=== PATIENT | male | born 1975 | race Caucasian/White ===

== ENCOUNTER 2023-09-23 14:40 | Inpatient (IN) | payer OTHER, SELFPAY ==
[2023-09-23 15:11] VITALS: BP 172/103; PULSE 79; RESP 16; TEMP 36.4; O2SAT 97
[2023-09-23 15:12] VITALS: BMI 24.3
[2023-09-23] MEDS: nicotine 2 mg Gum BUCCAL (16:03)
--- NOTE | 2023-09-23 16:22 | PC.NURSE ---
Patient is a direct admit from [facility]. Patient is on a 96-hour hold for statements he made while intoxicated. Patient stated to a neighbor that he either wanted to shoot himself or jump in the river. Patient's ETOH was 323 when he was admitted to [facility]. On 09/21 at 0100, patient's ETOH was 93. Patient recently found out that his of 27 years cheated on him. Patient currently denies SI, HI. Patient states that when he drinks, he gets suicidal and homicidal. Patient denies AVH. Patient is an alcoholic. Patient completed a 30-day program at [facility] over one year ago. Patient denies drinking daily, but in the past he was an everyday drinker. Patient's BP elevated upon arrival. Patient states that he always has high blood pressure. Patient doesn't appear to be in any distress
[2023-09-23] MEDS: LORazepam 2 mg Tablet PO (17:07)
--- NOTE | 2023-09-23 17:09 | PC.NURSE ---
Administered Ativan 2mg PO to patient per Dr. Foley despite scoring a 4 on CIWA. Patient states that he doesn't display common side effects of detoxing from alcohol. Patient's blood pressure has been elevated, and the [facility] was not able to determine if patient is on Losartan because it shows it has been cancelled. Called his PCP, Estella Gallegos at [phone], but office had closed for the day. Patient was given metoprolol and losartan at [facility] prior to being shipped to [facility].
--- NOTE | 2023-09-23 18:09 | PC.NURSE ---
Patient's BP 145/90 after having the ativan 2mg. Dr. Foley notified.
[2023-09-23 20:02] VITALS: BP 109/68; PULSE 87; RESP 16; TEMP 36.6; O2SAT 97
[2023-09-24] VITALS (7 sets, daily range): BP systolic 142–156; BP diastolic 97–114; PULSE 92–133; RESP 16–20; TEMP 36.6; O2SAT 96–99
[2023-09-24] MEDS: nicotine 21 mg Patch 1 PATCH TRANSDERMA (07:21)
--- NOTE | 2023-09-24 07:37 | P.NPUHP_ITS ---
Providers/Chief Complaint Admitting Physician: Cory Foley MD Chief Complaint: SI HPI NPU History of Present Illness Thiago Lauren is a 48 year old male presented to the outside hospital emergency department reporting that his landlord brought him because he told him he was going to shoot himself with multiple guns in the house. He reportedly texted his who he reported had been cheating on him and that he had relapsed and had suicidal ideation. He reported to them that he just wanted to end. He was placed on a 96-hour hold and transferred to [facility] for definitive treatment of those issues. He presents today reporting: CHIEF COMPLAINT Suicidal thoughts, depression and anxiety due to marital issues. HISTORY OF THE PRESENT COMPLAINT The patient is currently under a 96-hour hold due to suicidal thoughts. He has been experiencing these thoughts recently, with a notable incident occurring on the previous Saturday. He has not acted on these thoughts but has access to firearms at home. He denies any history of self-injurious behavior such as cutting, burning, or head-banging. The patient's mood is currently low, and he describes himself as feeling sad. He has been experiencing feelings of depression, hopelessness, and worthlessness, along with sleep difficulties and a decrease in energy. He has also reported a loss of enjoyment in activities he previously enjoyed. He has noticed changes in his appetite and has expressed a lack of concern about waking up the next day. The patient's current emotional state appears to be linked to recent events in his personal life. He discovered a couple of weeks ago that his had been unfaithful and has been struggling with his emotions since then. Despite the infidelity, they are still and are trying to work on their relationship. The patient has a history of alcohol use and has been to rehab twice. He had been sober for five to six months following his most recent stint in rehab but relapsed approximately one to two weeks ago. He also uses tobacco and cannabis but denies the use of other substances such as cocaine, methamphetamine, opiates, pain pills, ecstasy, and mushrooms. In terms of medication, the patient is currently taking a pill for his mood, which he refers to as a happy pill. He is unsure of the name of this medication. He has previously been on medication for depression or anxiety but does not recall the names of these medications. He has agreed to try Prozac 20 mg to help with his mood. The patient has a history of being held in a psychiatric hospital and has undergone outpatient treatment where he discussed his issues. He has also been through detox and rehab. He has a DUI charge from three years ago and has been to rehab twice. He has not had any other charges such as paraphernalia, underage drinking, or possession. 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 He has been in a relationship with his for 30 years, and they have two daughters aged 21 and 26. He does not have a strong mormon belief system and has been living in a house with his and 21-year-old daughter. He has a history of high blood pressure and had a broken wrist when he was [age] years old. We discussed the risks, benefits and alternatives to a trial of Prozac 20 mg p.o. daily and he understood and agreed to proceed as is documented in this note. MENTAL HEALTH HISTORY Previous psychiatric hospitalization, outpatient treatment, detox and rehab. History of medication for depression and anxiety. No history of self-injurious behavior, hearing voices, obsessive thoughts, or mental health issues in family. No history of suicide attempts or compaction. No history of special education needs or child protective services involvement. No history of traumatic events. SOCIAL HISTORY Tobacco use (chewing), alcohol use with periods of sobriety and recent relapse, cannabis use. No use of cocaine, methamphetamine, opiates, pain pills, ecstasy, or mushrooms. DUI charge three years ago, no other charges. with two daughters, currently trying to work on relationship after 's affair. 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 No mormon belief system. 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 No service. No history of retirement time. Meds NPU Home Medications Medication Instructions Recorded Confirmed Last Taken Type meloxicam 15 mg tablet 15 mg PO DAILY 09/24/23 09/24/23 Unknown History naltrexone 50 mg tablet 50 mg PO DAILY 09/24/23 09/24/23 Unknown History Allergies Allergy/AdvReac Type Severity Reaction Status Date / Time No Known Allergies Allergy Verified 09/23/23 15:14 Mental Status Exam MSE Comments: This is a well-nourished well-developed white male, in hospital scrubs with limited grooming but adequate eye contact. No abnormal movements except for mild psychomotor retardation. Cooperative with exam in mild distress. Speech was decreased rate and volume. Mood described as sad; affect congruent and somewhat emotional. Thought process, organized. Thought content: patient denied any suicidal or homicidal ideation, there were no delusions reported or noted, he denied any auditory or visual hallucinations. Suicidal thoughts, depression, anxiety, low mood, feeling helpless, hopeless, worthless, sleep difficulties, low energy, loss of enjoyment, change in appetite. No thoughts of violence or aggression against others, no visual hallucinations, no paranoia, no hallucinations. Attention and concentration appear intact, and memory appears reliable but were not formally tested. He is alert and oriented times three. Insight and judgment are fair. Impulse control impaired. Vitals/I&O/Wt Last Vital Signs Temp 98 F 09/24/23 06:00 Pulse 92 09/24/23 06:00 Resp 16 09/24/23 06:00 BP 142/104 09/24/23 06:00 Pulse Ox 99 09/24/23 06:00 O2 Del Method Room Air 09/23/23 15:12 Weight last 48 hrs Weight 64.41 kg A&P Assessment and plan (1) Marital/partner relational problem: (2) Alcohol use disorder, severe, dependence: (3) Depression: (4) Adjustment disorder with mixed disturbance of emotions and conduct: (5) Suicidal ideation: Plan This is a 48-year-old white male with a long history of alcohol addiction with a recent period of sobriety after rehab who presents endorsing depression and an openness to trial of medication. Patient is struggling with depression and suicidal thoughts following discovery of 's affair. He has a history of alcohol and cannabis use, and is currently on a 96-hour hold due to his mental state. He has not previously been hospitalized or undergone outpatient treatment except for detox, and rehab. He is not typically an anxious person, but is currently experiencing anxiety due to his situation. 1.? ?Encourage individual ,milieu, and group therapy 2. ? We will attempt to gather collateral information. 3. ? TO-15 minute checks on the unit. 4.? Recommend sober living treatment at the highest level of care to which the patient is willing to commit. 5. Continue CIWA protocol. 6. Start Prozac 20 mg p.o. daily Involuntary Hold Information 96 Hour Hold: 96 Hour Involuntary Admission: Yes Attestations NPU Medical Necessity Statement*: Inpatient hospitalization is medically necessary and the clinically appropriate intervention at this time. We will monitor/initiate medications and make changes as indicated he will be in the hospital for over 2 midnights. Likely length of stay is 3 to 5 days. Coding Level of Care Code Acute Code for Chg Fwd Diagnoses Marital/partner relational problem Z63.0 Alcohol use disorder, severe, dependence F10.20 Depression F32.A Adjustment disorder with mixed disturbance of emotions and conduct F43.25 Suicidal ideation R45.851
[2023-09-24] MEDS: meloxicam 7.5 mg tablet 15 MG PO (08:12)
[2023-09-24] MEDS: multivitamin therapeutic Tablet 1 TAB PO (08:13)
[2023-09-24] MEDS: naltrexone hcl 50 mg Tablet PO (08:13)
[2023-09-24] MEDS: folic acid 1 mg Tablet PO (08:13)
[2023-09-24] MEDS: thiamine 100 mg Tablet PO (08:13)
--- NOTE | 2023-09-24 09:49 | PC.NURSE ---
AT AROUND 0900 STAFF PERFORMED RANDOM ROOM CHECKS FOR CONTRABAND. DURING THIS RANDOM CHECK NO CONTRABAND WAS FOUND IN PT ROOM. PT WAS COOPERATIVE WITH CHECK.
[2023-09-24] MEDS: LORazepam 2 mg Tablet PO (10:52)
[2023-09-24] MEDS: losartan 50 mg Tablet PO (14:39)
[2023-09-24] MEDS: hyDROXYzine 25 mg Capsule 50 MG PO (22:50)
[2023-09-25] MEDS: LORazepam 2 mg Tablet PO (02:10)
[2023-09-25 03:48] VITALS: BP 144/85; PULSE 87
[2023-09-25 07:52] VITALS: BP 159/103; PULSE 86; RESP 17; O2SAT 98
[2023-09-25 08:50] VITALS: BP 159/103
[2023-09-25] MEDS: folic acid 1 mg Tablet PO (08:50)
[2023-09-25] MEDS: thiamine 100 mg Tablet PO (08:50)
[2023-09-25] MEDS: naltrexone hcl 50 mg Tablet PO (08:50)
[2023-09-25] MEDS: meloxicam 7.5 mg tablet 15 MG PO (08:50)
[2023-09-25] MEDS: multivitamin therapeutic Tablet 1 TAB PO (08:50)
[2023-09-25] MEDS: OLANZapine 5 mg ODT PO (08:50)
[2023-09-25] MEDS: losartan 50 mg Tablet PO (08:50)
[2023-09-25 12:00] VITALS: BP 136/87; PULSE 112; RESP 17; O2SAT 97
--- NOTE | 2023-09-25 15:57 | P.NPUPN_ITS ---
Subjective NPU Subjective: Patient presented today reporting that he is feeling a little better. He reports that he is having some improvement from the standpoint of his withdrawal symptoms and is still dealing with the situation at home with his . He did receive the Prozac and denied any side effects from the medication. We discussed some work with the social work team for appropriate follow-up. Mental Status Exam MSE Comments: This is a well-nourished well-developed white male, in hospital scrubs with limited grooming but adequate eye contact. No abnormal movements except for mild psychomotor retardation. Cooperative with exam in mild distress. Speech was decreased rate and volume. Mood described as a little better; affect congruent and less emotional. Thought process, organized. Thought content: patient denied any suicidal or homicidal ideation, there were no delusions reported or noted, he denied any auditory or visual hallucinations. Suicidal thoughts, depression, anxiety, low mood, feeling helpless, hopeless, worthless, sleep difficulties, low energy, loss of enjoyment, change in appetite. No thoughts of violence or aggression against others, no visual hallucinations, no paranoia, no gasca ucinations. Attention and concentration appear intact, and memory appears reliable but were not formally tested. He is alert and oriented times three. Insight and judgment are fair. Impulse control impaired. Vitals/I&O/Wt Last Vital Signs Temp 97.9 F 09/24/23 20:00 Pulse 112 H 09/25/23 12:00 Resp 17 09/25/23 12:00 BP 136/87 09/25/23 12:00 Pulse Ox 97 09/25/23 12:00 O2 Del Method Room Air 09/24/23 15:44 A&P Assessment and plan (1) Marital/partner relational problem: (2) Alcohol use disorder, severe, dependence: (3) Depression: (4) Adjustment disorder with mixed disturbance of emotions and conduct: (5) Suicidal ideation: Plan This is a 48-year-old white male with a long history of alcohol addiction with a recent period of sobriety after rehab who presents endorsing depression and an openness to trial of medication. Patient is struggling with depression and suicidal thoughts following discovery of 's affair. He has a history of alcohol and cannabis use, and is currently on a 96-hour hold due to his mental state. He has not previously been hospitalized or undergone outpatient treatment except for detox, and rehab. He is not typically an anxious person, but is currently experiencing anxiety due to his situation. 1.? ?Encourage individual ,milieu, and group therapy 2. ? We will attempt to gather collateral information. 3. ? TO-15 minute checks on the unit. 4.? Recommend sober living treatment at the highest level of care to which the patient is willing to commit. 5. Continue CIWA protocol. 6. Started Prozac 20 mg p.o. daily Involuntary Hold Information 96 Hour Hold: 96 Hour Involuntary Admission: Yes Attestations NPU Medical Necessity Statement*: Inpatient hospitalization is medically necessary and the clinically appropriate intervention at this time. We will monitor/initiate medications and make changes as indicated. Likely length of stay is 1-4 days. Coding Level of Care Code Acute Code for Chg Fwd Diagnoses Marital/partner relational problem Z63.0 Alcohol use disorder, severe, dependence F10.20 Depression F32.A Adjustment disorder with mixed disturbance of emotions and conduct F43.25 Suicidal ideation R45.851
[2023-09-25 16:00] VITALS: BP 134/93; PULSE 91; RESP 16; O2SAT 96
--- NOTE | 2023-09-25 18:50 | PC.NURSE ---
PT RECEIVED PRN MEDICATIONS FOR REPORTS OF INCREASED ANXIETY. PT WAS GIVEN ZYDIS 5 MG ORDERED. MEDICATION DEEMED EFFECTIVE AT THIS TIME. PT HAD NO OTHER COMPLAINTS OF ANXIETY SUPPORT VOICED.
[2023-09-25 20:00] VITALS: BP 117/78; PULSE 102; RESP 17; TEMP 36.4; O2SAT 96
[2023-09-26] VITALS (7 sets, daily range): BP systolic 144–169; BP diastolic 92–102; PULSE 74–103; RESP 16–20; TEMP 36.6–36.7; O2SAT 96–100
[2023-09-26] MEDS: naltrexone hcl 50 mg Tablet PO (08:24)
[2023-09-26] MEDS: losartan 50 mg Tablet PO (08:24)
[2023-09-26] MEDS: thiamine 100 mg Tablet PO (08:24)
[2023-09-26] MEDS: OLANZapine 5 mg ODT PO (08:24)
[2023-09-26] MEDS: folic acid 1 mg Tablet PO (08:24)
[2023-09-26] MEDS: multivitamin therapeutic Tablet 1 TAB PO (08:24)
[2023-09-26] MEDS: meloxicam 7.5 mg tablet 15 MG PO (08:24)
--- NOTE | 2023-09-26 08:59 | PC.NURSE ---
PT IN DAY ROOM EATING. BP AT 800 WAS 169/102 WITH HR 74. DENIES PAIN. DENIES SI/HI AND AVH AT THIS TIME. RATES ANXIETY 07/03 AND DEPRESSION /. ZYDIS 5 MG WAS GIVEN TO REDUCE ANXIETY AND ASSIST WITH ALCOHOL WITHDRAWAL. PT IS OBSERVED SITTING IN DAY ROOM CONVERSING WITH PEERS AND STAFF. PT REPORTS HE SLEPT WELL LAST NIGHT. DENIES PAIN. ALL QUESTIONS WERE ANSWERED AND SUPPORT WAS VOICED.
[2023-09-26] MEDS: nicotine 21 mg Patch 1 PATCH TRANSDERMA (09:49)
--- NOTE | 2023-09-26 13:30 | W.PM.NPUPNS ---
Subjective NPU Subjective: Patient presented today reporting that he is feeling a little better each day. We eventually were able to get a hold of his and she agreed to figure out a place for the guns to be removed to and put in a safe with someone and her inner [place] for the time being. She reports that she is open to him returning home and that she would come to pick him up tomorrow. He reports his withdrawal appears to be resolving and that he denied any side effects to the medication. Mental Status Exam MSE Comments: This is a well-nourished well-developed white male, in hospital scrubs with limited grooming but adequate eye contact. No abnormal movements except for mild psychomotor retardation. Cooperative with exam in mild distress. Speech was decreased rate and volume. Mood described as a little better; affect congruent and less emotional. Thought process, organized. Thought content: patient denied any suicidal or homicidal ideation, there were no delusions reported or noted, he denied any auditory or visual hallucinations. Suicidal thoughts, depression, anxiety, low mood, feeling helpless, hopeless, worthless, sleep difficulties, low energy, loss of enjoyment, change in appetite. No thoughts of violence or aggression against others, no visual hallucinations, no paranoia, no hallucinations. Attention and concentration appear intact, and memory appears reliable but were not formally tested. He is alert and oriented times three. Insight and judgment are fair. Impulse control impaired. Vitals/I&O/Wt Last Vital Signs Temp 98 F 09/26/23 12:00 Pulse 103 H 09/26/23 12:00 Resp 20 H 09/26/23 12:00 BP 156/100 09/26/23 12:00 Pulse Ox 98 09/26/23 12:00 O2 Del Method Room Air 09/24/23 15:44 A&P Assessment and plan (1) Marital/partner relational problem: (2) Alcohol use disorder, severe, dependence: (3) Depression: (4) Adjustment disorder with mixed disturbance of emotions and conduct: (5) Suicidal ideation: Plan This is a 48-year-old white male with a long history of alcohol addiction with a recent period of sobriety after rehab who presents endorsing depression and an openness to trial of medication. Patient is struggling with depression and suicidal thoughts following discovery of 's affair. He has a history of alcohol and cannabis use, and is currently on a 96-hour hold due to his mental state. He has not previously been hospitalized or undergone outpatient treatment except for detox, and rehab. He is not typically an anxious person, but is currently experiencing anxiety due to his situation. 1.? ?Encourage individual ,milieu, and group therapy 2. ? We will attempt to gather collateral information. 3. ? TO-15 minute checks on the unit. 4.? Recommend sober living treatment at the highest level of care to which the patient is willing to commit. 5. Continue CIWA protocol. 6. Started Prozac 20 mg p.o. daily 7. Plan for discharge tomorrow Involuntary Hold Information 96 Hour Hold: 96 Hour Involuntary Admission: Yes Attestations NPU Medical Necessity Statement*: Inpatient hospitalization is medically necessary and the clinically appropriate intervention at this time. We will monitor/initiate medications and make changes as indicated. Likely length of stay is 1 day. Coding Level of Care Code Acute Code for g Fwd Diagnoses Marital/partner relational problem Z63.0 Alcohol use disorder, severe, dependence F10.20 Depression F32.A Adjustment disorder with mixed disturbance of emotions and conduct F43.25 Suicidal ideation R45.851
[2023-09-26] MEDS: haloperidol 5 mg Tablet PO (15:11)
[2023-09-26] MEDS: hyDROXYzine 25 mg Capsule 50 MG PO (18:37)
[2023-09-27 06:00] VITALS: BP 134/91; PULSE 98; RESP 16; TEMP 36.6; O2SAT 98
[2023-09-27 08:06] VITALS: BP 134/91
[2023-09-27] MEDS: multivitamin therapeutic Tablet 1 TAB PO (08:06)
[2023-09-27] MEDS: naltrexone hcl 50 mg Tablet PO (08:06)
[2023-09-27] MEDS: meloxicam 7.5 mg tablet 15 MG PO (08:06)
[2023-09-27] MEDS: thiamine 100 mg Tablet PO (08:06)
[2023-09-27] MEDS: folic acid 1 mg Tablet PO (08:06)
[2023-09-27] MEDS: losartan 50 mg Tablet PO (08:06)
[2023-09-27] MEDS: nicotine 4 mg lozenge MUCOUS MEM ×2 (08:15→11:01)
--- NOTE | 2023-09-27 12:17 | P.NPUDS_ITS ---
Diagnoses at Discharge Discharge Diagnosis (1) Marital/partner relational problem: Status: Acute (2) Alcohol use disorder, severe, dependence: Status: Acute (3) Depression: Status: Acute (4) Adjustment disorder with mixed disturbance of emotions and conduct: Status: Acute (5) Suicidal ideation: Status: Acute Reason for Visit Reason for Visit: SI Brief History: History of Present Illness Thiago Lauren is a 48 year old male presented to the [facility] emergency department reporting that his landlord brought him because he told him he was going to shoot himself with multiple guns in the house. He reportedly texted his who he reported had been cheating on him and that he had relapsed and had suicidal ideation. He reported to them that he just wanted to end. He was placed on a 96-hour hold and transferred to [facility] for definitive treatment of those issues. He presents today reporting: CHIEF COMPLAINT Suicidal thoughts, depression and anxiety due to marital issues. HISTORY OF THE PRESENT COMPLAINT The patient is currently under a 96-hour hold due to suicidal thoughts. He has been experiencing these thoughts recently, with a notable incident occurring on the previous Saturday. He has not acted on these thoughts but has access to firearms at home. He denies any history of self-injurious behavior such as cutting, burning, or head-banging. The patient's mood is currently low, and he describes himself as feeling sad. He has been experiencing feelings of depression, hopelessness, and worthlessness, along with sleep difficulties and a decrease in energy. He has also reported a loss of enjoyment in activities he previously enjoyed. He has noticed changes in his appetite and has expressed a lack of concern about waking up the next day. The patient's current emotional state appears to be linked to recent events in his personal life. He discovered a couple of weeks ago that his had been unfaithful and has been struggling with his emotions since then. Despite the infidelity, they are still and are trying to work on their relationship. The patient has a history of alcohol use and has been to rehab twice. He had been sober for five to six months following his most recent stint in rehab but relapsed approximately one to two weeks ago. He also uses tobacco and cannabis but denies the use of other substances such as cocaine, methamphetamine, opiates, pain pills, ecstasy, and mushrooms. In terms of medication, the patient is currently taking a pill for his mood, which he refers to as a happy pill. He is unsure of the name of this medication. He has previously been on medication for depression or anxiety but does not recall the names of these medications. He has agreed to try Prozac 20 mg to help with his mood. The patient has a history of being held in a psychiatric hospital and has undergone outpatient treatment where he discussed his issues. He has also been through detox and rehab. He has a DUI charge from three years ago and has been to rehab twice. He has not had any other charges such as paraphernalia, underage drinking, or possession. 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 He has been in a relationship with his for 30 years, and they have two daughters aged 21 and 26. He does not have a strong uatsdin belief system and has been living in a house with his and 21-year-old daughter. He has a history of high blood pressure and had a broken wrist when he was [age] years old. We discussed the risks, benefits and alternatives to a trial of Prozac 20 mg p.o. daily and he understood and agreed to proceed as is documented in this note. MENTAL HEALTH HISTORY Previous psychiatric hospitalization, outpatient treatment, detox and rehab. History of medication for depression and anxiety. No history of self-injurious behavior, hearing voices, obsessive thoughts, or mental health issues in family. No history of suicide attempts or compaction. No history of special education needs or child protective services involvement. No history of traumatic events. SOCIAL HISTORY Tobacco use (chewing), alcohol use with periods of sobriety and recent relapse, cannabis use. No use of cocaine, methamphetamine, opiates, pain pills, ecstasy, or mushrooms. DUI charge three years ago, no other charges. with two daughters, currently trying to work on relationship after 's affair. 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 No uatsdin belief system. 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 No service. No history of [facility] time. Hospital Course Hospital Course He slowly acclimated to the individual, group and milieu therapies provided. He presented with depression and significant difficulties with alcohol us e/addiction. He was continued on naltrexone and we discussed the Vivitrol injection. He was started on Prozac 20 mg p.o. daily along with Vistaril and thiamine. He was on the CIWA protocol initially until his alcohol withdrawal had abated. We worked with his to ensure that the guns were removed by a family friend. He worked with the social work team to find appropriate aftercare and follow-up appointments. He had significant improvement and was able to contract for safety outside of the hospital prior to discharge. At the outside hospital, the patient had routine laboratory studies which were within normal limits except for a few outliers. Additionally, there was a general medical evaluation which was also within normal limits and revealed no new acute processes. At the time of discharge, he denied psychosis or lethality. Mood and anxiety were well managed. The patient endorsed a plan to avoid all drugs of abuse and follow up with the aftercare recommendations of the treatment team. The patient was evaluated and deemed to be absent credible lethality and had achieved the maximum benefit from an inpatient hospitalization, and so was discharged. Involuntary Hold Information 96 Hour Hold: 96 Hour Involuntary Admission: Yes Mental Status Exam MSE Comments: This is a well-nourished well-developed white male, in hospital scrubs with limited grooming but adequate eye contact. No abnormal movements except for mild psychomotor retardation. Cooperative with exam in mild distress. Speech was decreased rate and volume. Mood described as better; affect congruent. Thought process, organized. Thought content: patient denied any suicidal or homicidal ideation, there were no delusions reported or noted, he denied any auditory or visual hallucinations. Attention and concentration appear intact, and memory appears reliable but were not formally tested. He is alert and oriented times three. Insight and judgment are fair. Impulse control impaired, but improving. Discharge Data Vitals: Last Vital Signs Temp 97.9 F 09/27/23 06:00 Pulse 98 09/27/23 06:00 Resp 16 09/27/23 06:00 BP 134/91 09/27/23 08:06 Pulse Ox 98 09/27/23 06:00 O2 Del Method Room Air 09/27/23 06:00 Discharge Plan Discharge Patient Disposition: Home Condition: Stable Prescriptions: New Vitamin B-1 (mononitrate) 100 mg Tablet 100 mg PO DAILY 30 Days Qty: 30 1RF losartan 50 mg Tablet 50 mg PO DAILY 30 Days Qty: 30 1RF hydroxyzine pamoate 25 mg Capsule 50 mg PO Q6H PRN (Reason: Anxiety) 30 Days Qty: 30 1RF fluoxetine 20 mg Capsule 20 mg PO DAILY 30 Days Qty: 30 1RF Continued meloxicam 15 mg tablet 15 mg PO DAILY 30 Days Qty: 30 1RF naltrexone 50 mg tablet 50 mg PO DAILY 30 Days Qty: 30 1RF Discharge Orders: Discharge Order (Routine); Ordered 09/27/23 Ordered By: Cory Foley Referrals: [facility] Gallegos [Other] - 10/04/23 1:00 pm [facility] [Other] (Walk in for services Saturday thru Saturday 8am to 4pm) Discharge Diet: Regular Discharge Activity: Resume usual activity Patient Instructions: Depression, Fluoxetine (By mouth) (Fluoxetine HCl, Gaboxetine, Prozac, Prozac Weekly), Suicide Prevention (DC), Opioid Safety Discharge Attestations NPU Time Spent in Discharge Care*: less than 30 min Specific Discharge Activities: Specific discharge activities: educating patient, discussing with manager of case/social workers/dc planners, documenting/other paperwork and evaluating patient/reviewing data Coding Level of Care Code Acute Code for Chg Fwd Diagnoses Marital/partner relational problem Z63.0 Alcohol use disorder, severe, dependence F10.20 Depression F32.A Adjustment disorder with mixed disturbance of emotions and conduct F43.25 Suicidal ideation R45.851
[2023-09-27] MEDS: fluoxetine 20 mg Capsule PO (13:31)
[2023-09-27 13:34] VITALS: BP 153/95; PULSE 90; RESP 16; TEMP 37; O2SAT 98
[2023-09-27 13:53] VITALS: BP 153/95; PULSE 90; RESP 16; TEMP 37; O2SAT 98
== END 2023-09-27 14:14 | disposition home or self-care (01) | DRG 881 ==
PROVIDERS: Admitting Provider Psychiatry & Neurology Psychiatry; Visit Provider Psychiatry & Neurology Psychiatry
DX: F32.A Depression, unspecified (principal); R45.851 Suicidal ideations; F41.9 Anxiety disorder, unspecified; Z63.0 Problems in relationship with spouse or partner; F17.220 Nicotine dependence, chewing tobacco, uncomplicated; F12.90 Cannabis use, unspecified, uncomplicated; F10.20 Alcohol dependence, uncomplicated; F43.25 Adjustment disorder with mixed disturbance of emotions and conduct
CPT/HCPCS: 97150; 97165